=== PATIENT | male | born 2000 | race Caucasian/White ===

== ENCOUNTER 2020-01-04 18:56 | Emergency (ER) | payer MEDICAID ==
[~2020-01-04] VITALS: Ht 167.6 cm; Wt 52.2 kg
[2020-01-04 19:27] VITALS: BP 137/77
--- NOTE | 2020-01-04 19:30 | NUR ---
PT IN LOBBY
--- NOTE | 2020-01-04 19:35 | NUR ---
URINE SAMPLE COLLECTED AND LEFT FOR LAB TO PICKUP
--- NOTE | 2020-01-04 19:52 | NUR ---
19 Y/O MALE C/O 1 WEEK NOW WHEN PT HAS BM HE SEES CLEAR MUCOUS WITH STOOLS AND HAS BEEN CONSTIPATED; DENIES N/V/D; SKIN IS PINK/WARM/DRY; AAOX4 WITH EVEN AND STEADY GAIT; HR EVEN AND REGULAR; PT DENIES ANY FEVER, CP, SOB, OR COUGH AT THIS TIME; PATIENT STATES PAIN OF 0/10 AT THIS TIME; VSS PMH: SEIZURES ALLERGY:PCN
--- NOTE | 2020-01-04 20:40 | NUR ---
URINE DIP DONE
[2020-01-04 21:13] LABS: BASOPHILS # (AUTO) 0.1 K/uL (0.00-0.22); BASOPHILS % (AUTO) 0.7 % (0.0-2.0); EOSINOPHILS % (AUTO) 0.6 % (0.0-4.0); HEMATOCRIT 47.4 % (36-52); LYMPHOCYTES # (AUTO) 1.7 K/uL (2.0-11.5); LYMPHOCYTES % (AUTO) 24.3 % (20.5-51.1); MEAN CORPUSCULAR HEMOGLOBIN 30 pg (27-31); MEAN CORPUSCULAR HGB CONC 34 g/dL (33-37); MEAN CORPUSCULAR VOLUME 87.7 fL (80-94); MONOCYTES # (AUTO) 0.4 K/uL (0.8-1.0); MONOCYTES % (AUTO) 5.9 % (1.7-9.3); NEUTROPHILS # (AUTO) 4.8 K/uL (1.8-7.7); NEUTROPHILS % (AUTO) 68.5 % (42.2-75.2); PLATELET COUNT (AUTO) 236 K/uL (140-450); RED BLOOD CELL COUNT(AUTO) 5.41 MIL/uL (4.20-6.10); RED CELL DISTRIBUTION WIDTH 13.7 % (11.6-13.7); WHITE BLOOD COUNT (AUTO) 7.1 K/uL (4.5-11.0)
[2020-01-04 21:22] LABS: ALBUMIN 5.1 g/dL (3.4-5.0); ANION GAP 15.6 (8-16); CARBON DIOXIDE 27.7 mmol/L (21-32); CREATININE 0.8 mg/dL (0.6-1.3); POTASSIUM 4.3 mmol/L (3.5-5.1); TOTAL BILIRUBIN 1.2 mg/dL (0.0-1.0)
--- NOTE | 2020-01-04 21:40 | NUR ---
PT AMBULATED TO CHAIR C WITH STEADY GAIT
[2020-01-04 22:02] VITALS: BP 137/77
--- NOTE | 2020-01-04 22:02 | NUR ---
Patient discharged with v/s stable. Written and verbal after care instructions given and explained. Patient alert, oriented and verbalized understanding of instructions. Ambulatory with steady gait. All questions addressed prior to discharge. ID band removed. Patient advised to follow up with PMD. Rx of CIPROFLOXACIN given. Patient educated on indication of medication including possible reaction and side effects. Opportunity to ask questions provided and answered.
== END 2020-01-04 22:02 | disposition home or self-care (01) ==
LOC: MED 18:56
DX: R19.7 Diarrhea, unspecified (principal)
CPT/HCPCS: 36415; 80053; 81002; 85025; 99283

== ENCOUNTER 2020-07-24 00:14 | Emergency (ER) | payer MEDICAID ==
[~2020-07-24] VITALS: Ht 160 cm; Wt 55.3 kg
[2020-07-24 00:19] VITALS: BP 135/93
[2020-07-24] MEDS ORDERED: LORazepam 0.5 MG TAB PO ONE (00:40)
[2020-07-24 02:12] VITALS: BP 120/89
== END 2020-07-24 02:12 | disposition home or self-care (01) ==
LOC: MED 00:14
DX: F41.0 Panic disorder [episodic paroxysmal anxiety] (principal); Z88.0 Allergy status to penicillin
CPT/HCPCS: 93005; 99283

== ENCOUNTER 2020-12-18 02:36 | Emergency (ER) | payer MEDICAID ==
[~2020-12-18] VITALS: Ht 162.6 cm; Wt 55.3 kg
[2020-12-18 02:44] VITALS: BP 136/73
--- NOTE | 2020-12-18 02:50 | NUR ---
PT TAKEN TO BED 11
--- NOTE | 2020-12-18 03:01 | NUR ---
20/M c/o left testicular pain x2 days. Symptoms started a month ago but got worse the past 2 days. Pt describes pain as sharp and burning, which radiates to left part of his groin, and is provoked by touch. Pt also states presence of "fluid filled lump" on his left testicle. Pt denies any trauma, swelling, discharge, fever. PMH: anxiety Allergy: PCN
--- NOTE | 2020-12-18 03:15 | NUR ---
Dr. Fernando at bedside examining patient
--- NOTE | 2020-12-18 03:31 | NUR ---
urine sample collected and sent to lab
[2020-12-18 03:36] LABS: APPEARANCE,URINE CLEAR (CLEAR); BILIRUBIN,URINE NEGATIVE (NEGATIVE); BLOOD, URINE NEGATIVE (NEGATIVE); COLOR,URINE YELLOW (YELLOW); LEUKOCYTE ESTERASE ,URINE NEGATIVE (NEGATIVE); NITRITE, URINE NEGATIVE (NEGATIVE); PH,URINE 5.5 (5.0-9.0); UGLUCOSE NEGATIVE (NEGATIVE)
--- NOTE | 2020-12-18 04:45 | NUR ---
US at bedside
[2020-12-18] MEDS ORDERED: NAPR-54 PO (05:22)
--- NOTE | 2020-12-18 06:00 | NUR ---
ALL RESULTS BACK AND NOTED BY ERMD AND FOR D/C
[2020-12-18 06:20] VITALS: BP 118/78
== END 2020-12-18 06:20 | disposition home or self-care (01) ==
LOC: MED 02:36
DX: N50.812 Left testicular pain (principal); N43.3 Hydrocele, unspecified; F41.9 Anxiety disorder, unspecified; Z88.0 Allergy status to penicillin; Z79.899 Other long term (current) drug therapy
CPT/HCPCS: 36415; 76870; 81003; 87491; 99284

== ENCOUNTER 2021-10-09 04:41 | Emergency (ER) | payer MEDICAID ==
[~2021-10-09] VITALS: Ht 165.1 cm; Wt 55.3 kg
[~2021-10-09 04:41] MED LIST: NAPR-54 PO
[2021-10-09 04:43] VITALS: BP 130/86
[2021-10-09] MEDS: LORazepam 1 MG TAB PO ONE (05:03)
[2021-10-09 05:32] LABS: BASOPHILS % (AUTO) 0.7 % (0.0-2.0); EOSINOPHILS # (AUTO) 0.1 K/uL (0-0.4); EOSINOPHILS % (AUTO) 1.2 % (0.0-4.0); HEMATOCRIT 45.1 % (36-52); HEMOGLOBIN 15.6 g/dL (12.0-18.0); LYMPHOCYTES # (AUTO) 2.6 K/uL (2.0-11.5); LYMPHOCYTES % (AUTO) 45.4 % (20.5-51.1); MEAN CORPUSCULAR HEMOGLOBIN 30 pg (27-31); MEAN CORPUSCULAR HGB CONC 35 g/dL (33-37); MEAN CORPUSCULAR VOLUME 86.9 fL (80-94); MONOCYTES # (AUTO) 0.4 K/uL (0.8-1.0); MONOCYTES % (AUTO) 6.5 % (1.7-9.3); NEUTROPHILS # (AUTO) 2.6 K/uL (1.8-7.7); NEUTROPHILS % (AUTO) 46.2 % (42.2-75.2); PLATELET COUNT (AUTO) 224 K/uL (140-450); RED BLOOD CELL COUNT(AUTO) 5.19 MIL/uL (4.20-6.10); RED CELL DISTRIBUTION WIDTH 13.3 % (11.6-13.7); WHITE BLOOD COUNT (AUTO) 5.7 K/uL (4.8-10.8)
[2021-10-09] MEDS ORDERED: HYDR-637 PO (05:58)
[2021-10-09 06:03] LABS: ALBUMIN 4.7 g/dL (3.4-5.0); ANION GAP 10.2 (8-16); ASPARTATE AMINOTRANSFERASE 25 U/L (15-37); CARBON DIOXIDE 28.7 mmol/L (21-32); CHLORIDE 101 mmol/L (98-107); CREATININE 0.8 mg/dL (0.6-1.3); FREE T4 (FREE THYROXINE) 1.04 ng/dL (0.76-1.46); GFR ARICAN-AMERICAN 157 mL/min (>90); GLUCOSE 94 mg/dL (74-106); SODIUM SERUM 136 mmol/L (136-145); THYROID STIMULATING HORMONE 2.68 uIU/mL (0.34-3.74); UREA NITROGEN, BLOOD 12 mg/dL (7-18)
[2021-10-09 06:07] LABS: POTASSIUM 3.9 mmol/L (3.5-5.1)
[2021-10-09 06:13] VITALS: BP 130/86
== END 2021-10-09 06:13 | disposition home or self-care (01) ==
LOC: MED 04:41
DX: F41.9 Anxiety disorder, unspecified (principal); R00.2 Palpitations; Z79.899 Other long term (current) drug therapy; Z88.0 Allergy status to penicillin
CPT/HCPCS: 36415; 80053; 84439; 84443; 84484; 85025; 93005; 99284

== ENCOUNTER 2023-08-07 20:01 | Emergency (ER) | payer MEDICAID ==
[~2023-08-07] VITALS: Ht 165.1 cm; Wt 59.0 kg
[~2023-08-07 20:01] MED LIST changes: +HYDR-637 PO
[2023-08-07 20:23] VITALS: BP 126/85; PULSE 72; RESP 16; TEMP 97.2; O2SAT 100
[2023-08-07 21:37] LABS: BASOPHILS # (AUTO) 0.1 K/uL (0.00-0.22); BASOPHILS % (AUTO) 0.8 % (0.0-2.0); EOSINOPHILS # (AUTO) 0.3 K/uL (0-0.4); EOSINOPHILS % (AUTO) 4.3 % (0.0-4.0); HEMATOCRIT 44.3 % (36-52); HEMOGLOBIN 15.3 g/dL (12.0-18.0); LYMPHOCYTES # (AUTO) 3.2 K/uL (2.0-11.5); LYMPHOCYTES % (AUTO) 43.9 % (20.5-51.1); MEAN CORPUSCULAR HEMOGLOBIN 30 pg (27-31); MEAN CORPUSCULAR HGB CONC 35 g/dL (33-37); MEAN CORPUSCULAR VOLUME 87.2 fL (80-94); MONOCYTES # (AUTO) 0.6 K/uL (0.8-1.0); MONOCYTES % (AUTO) 8.1 % (1.7-9.3); NEUTROPHILS # (AUTO) 3.2 K/uL (1.8-7.7); NEUTROPHILS % (AUTO) 42.9 % (42.2-75.2); PLATELET COUNT (AUTO) 227 K/uL (140-450); RED BLOOD CELL COUNT(AUTO) 5.08 MIL/uL (4.20-6.10); RED CELL DISTRIBUTION WIDTH 13.4 % (11.6-13.7); WHITE BLOOD COUNT (AUTO) 7.4 K/uL (4.8-10.8)
[2023-08-07 21:53] LABS: ANION GAP 6.9 (8-16); CALCIUM 9.1 mg/dL (8.5-10.1); CARBON DIOXIDE 30.8 mmol/L (21-32); CREATININE 0.7 mg/dL (0.6-1.3); POTASSIUM 4.7 mmol/L (3.5-5.1)
[2023-08-07 22:04] LABS: ALBUMIN 4.3 g/dL (3.4-5.0); BILIRUBIN,DIRECT 0.2 mg/dL (0.0-0.3); TOTAL BILIRUBIN 0.7 mg/dL (0.0-1.0); TOTAL PROTEIN, SERUM 8.4 g/dL (6.4-8.2)
[2023-08-07 23:05] VITALS: O2SAT 100
[2023-08-07] MEDS ORDERED: BEN10 PO (23:18)
[2023-08-07] MEDS ORDERED: DOCU-299 PO (23:18)
== END 2023-08-07 23:24 | disposition home or self-care (01) ==
LOC: MED 20:01
DX: K59.00 Constipation, unspecified (principal); K92.1 Melena; Z86.69 Personal history of other diseases of the nervous system and sense organs; Z79.899 Other long term (current) drug therapy; Z88.0 Allergy status to penicillin
CPT/HCPCS: 36415; 80048; 80076; 85025; 99283